=== PATIENT | female | born 1980 | race Caucasian/White ===

== ENCOUNTER 2016-09-06 17:50 | Emergency (ER) | payer MEDICAID, OTHER ==
[2016-09-06] MEDS ORDERED: KETOROLAC 60 MG/2 ML VIAL IM ONE (18:35)
[2016-09-06] MEDS ORDERED: MORPHINE 4 MG/ML SYR ONE (18:35)
== END 2016-09-06 19:09 | disposition home or self-care (01) ==
LOC: ER 17:50
DX: M47.896 Other spondylosis, lumbar region (principal); M51.36 Other intervertebral disc degeneration, lumbar region; M48.06 Spinal stenosis, lumbar region; M54.42 Lumbago with sciatica, left side
CPT/HCPCS: 96372